=== PATIENT | male | born 1935 | race Two or more races ===

== ENCOUNTER → 2024-12-20 | Outpatient (CLI) | payer MEDICAID, SELFPAY ==
--- NOTE | 2024-12-20 09:48 | XR_ITS ---
EXAMINATION: PA lateral chest 2 views TECHNIQUE: Upright PA lateral chest 2 views Date and time: December 20, 2024, 0958 hours, comparison April 28, 2023 INDICATIONS: Status post cardiac pacemaker insertion April 28, 2024 FINDINGS: Mild enlargement left ventricle Unipolar ventricular lead satisfactory position Mild vascular congestion. No lobar pneumonia or pulmonary edema Prominent osteopenia IMPRESSION: Cardiac leads satisfactory position Mild vascular congestion
== END | disposition home or self-care (01) ==
PROVIDERS: Referring Provider Internal Medicine Infectious Disease; Visit Provider Internal Medicine Infectious Disease
DX: R09.89 Other specified symptoms and signs involving the circulatory and respiratory systems (principal); Z98.890 Other specified postprocedural states
CPT/HCPCS: 71046